=== PATIENT | male | born 1980 | race Caucasian/White ===

== ENCOUNTER 2024-09-17 16:57 | Inpatient (IN) | payer OTHER, SELFPAY ==
[2024-09-17] VITALS (24 sets, daily range): BP systolic 101–153; BP diastolic 60–100; BMI 33.7
[2024-09-17 14:37] LABS: % Basophils 0.3 % (0-2); % Eosinophils 0.1 % (0-6); % Immature Granulocytes 0.4 % (0-0.5); % Lymphocytes 6.7 % (20.5-51.1); % Neutrophils 87.5 % (42.2-75.2); Absolute Basophils 0.1 10^3/uL (0-0.2); Absolute Immature Granulocytes 0.1 10^3/uL (0-0.05); Absolute Lymphocytes 1.1 10^3/uL (1.2-3.4); Absolute Monocytes 0.8 10^3/uL (0.1-0.6); Absolute Neutrophils 14.1 10^3/uL (1.4-6.5); Hematocrit 46.7 % (39.0-52.0); Hemoglobin 16.5 g/dL (13.0-18.0); Mean Corp Hgb Conc. 35.3 g/dL (33.0-37.0); Mean Corpuscular Hgb 30.1 pg (27.0-31.0); Mean Corpuscular Volume 85.2 fL (80.0-94.0); Mean Platelet Volume 10.6 fL (7.4-10.4); Nucleated Red Blood Cells % 0 % (-); Platelet Count 297 10^3/uL (130-400); Red Blood Cell Count 5.48 10^6/uL (4.70-6.10); Red Cell Dist. Width 13.2 % (11.5-14.5); White Blood Cell Count 16.1 10^3/uL (4.8-10.8)
[2024-09-17 14:50] LABS: ALT (SGPT) 32 U/L (0-50); AST (SGOT) 97 U/L (17-59); Albumin 5.2 g/dl (3.5-5.0); Alkaline Phosphatase 66 U/L (38-126); Blood Urea Nitrogen 13 mg/dl (9-20); Carbon Dioxide 25 mmol/L (22-30); Chloride 108 mmol/L (98-107); Glucose 158 mg/dl (70-99); Lipase 96 U/L (23-300); Potassium 4.5 mmol/L (3.5-5.1); Sodium 145 mmol/L (135-145); Total Bilirubin 0.7 mg/dl (0.2-1.3); Total Protein 8.1 g/dl (6.3-8.2); eGFR > 60.00
--- NOTE | 2024-09-17 15:17 | ED.GENMED ---
History of Present Illness
General
Chief Complaint: Chest Pain
Source: patient
Exam Limitations: none
Time Seen by Provider: 09/17/24 15:08
History of Present Illness
History of Present Illness:
See MDM
Past History
Past History
ED Past Medical History: HTN and Hypercholesterolemia
ED Past Surgical History: None
Social History
Tobacco: Other (chewed tobacco)
Alcohol: None
Phy Exam
Physical Exam
Physical Exam:
See MDM
Scores
Heart Score for Chest Pain Patients
STEMI patient?: No
History: Highly Suspicious
ECG: Nonspecific Repolarization
Age: >45 - <65 years
Risk Factors: >/= 3 Risk Factors or History of CAD
Troponin: >/= 3 x Normal Limit
Heart Score for Chest Pain Patients: 8
Heart Score Risk: 72.7 % MACE over next 6 weeks
Course
Orders/Labs/Results
Orders:
Orders
09/17/24 14:09
Electrocardiogram (*1) Urgent
Reason for Study: Chest Pain
EKG- Treatment ONCE
09/17/24 14:27
Complete Blood Count/With Diff Urgent
Comprehensive Metabolic Panel Urgent
Lipase Urgent
Troponin I Urgent
09/17/24 15:16
Consult Cardiology [CARDIOLOGY CONSULT] Urgent
Consulting Provider: Erica Cote
Was physician already notified: Yes
Cardiac Monitoring- Treatment ONCE
0.9% Sodium Chloride 1000 ml [Nss] 1,000 ml IV BOLUS
Aspirin Chewable [Low Strength Aspirin] 324 mg PO NOW STA
Nitroglycerin Sublingual [Nitrostat (Sublingual)] 0.4 mg SL [id number] PRN
09/17/24 15:25
Nitroglycerin 100 mg/250 ml [Nitroglycerin Premix] 100 mg in 250 ml IV NOW
Initial dose in mcg/min, then titrate:: 5
Titrate to keep:: SBP < 160 mmHg
Titrate by mcg/min:: 5 mcg/min, may increase by 10 mcg/min if dose > 20 mcg/min
Frequency of titrations (minutes):: every 3-5 minutes
Maximum dose in mcg/min:: 200
Begin to taper infusion when:: Remained at goal for 2hrs
Taper by mcg/min:: 5 mcg/min
Frequency of taper (minutes) if patient maintains goal:: 30
Taper to off?: Yes
If infusion off & no longer maintaining goal:: Contact Provider
09/17/24 15:26
Electrocardiogram (*1) Urgent
Reason for Study: Chest Pain
EKG- Treatment ONCE
09/17/24 15:29
PTT Urgent
Prothrombin Time Urgent
09/17/24 15:31
CR Chest Portable - 1 View Urgent
Comment:
Reason For Exam: Chest pain
Reason Study Needs to be Portable: Unable to Transport
09/17/24 15:33
Add On- LAB Urgent
Tests Added?: hgb A1c, TSH reflex Free T4
Abnormal Lab Results
09/17/24
14:27
WBC 16.1 H 10^3/uL
(4.8-10.8)
MPV 10.6 H fL
(7.4-10.4)
Abs Immat Gran (auto) 0.1 H 10^3/uL
(0-0.05)
Absolute Neuts (auto) 14.1 H 10^3/uL
(1.4-6.5)
Absolute Lymphs (auto) 1.1 L 10^3/uL
(1.2-3.4)
Absolute Monos (auto) 0.8 H 10^3/uL
(0.1-0.6)
Neutrophils % 87.5 H %
(42.2-75.2)
Lymphocytes % 6.7 L %
(20.5-51.1)
Chloride 108 H mmol/L
(98-107)
Glucose 158 H mg/dl
(70-99)
Calcium 11.0 H mg/dl
(8.4-10.2)
AST 97 H U/L
(17-59)
Troponin I 5.800 H* ng/ml
Albumin 5.2 H g/dl
(3.5-5.0)
09/17/24 14:27
09/17/24 14:27
Vital Signs
Initial and Last Documented VS:
Initial Vital Signs
Pulse Resp BP Pulse Ox
69 18 153/86 99
09/17/24 14:16 09/17/24 14:16 09/17/24 14:16 09/17/24 14:16
Last Documented Vital Signs
Pulse Resp BP Pulse Ox
69 18 117/78 99
09/17/24 14:16 09/17/24 14:16 09/17/24 15:33 09/17/24 14:16
MDM/Problems Addressed
Differential Diagnosis Includes:
HPI and MDM Narrative:
44-year-old male presenting for evaluation of chest pain. Patient states the pain woke him up at 5:30 in the morning. Since then, patient has been noticing that symptoms are worse with exertion. Initially thought it could be GERD related so he
took Tums. Given the persistent nature he came to the emergency department. Screening EKG did not show any evidence of STEMI. Patient was brought back to the emergency department immediately when his troponin was elevated at 5.8
Patient immediately placed on the monitor. I discussed case with cardiology. Will start heparin drip and start sublingual nitroglycerin. Patient given aspirin
Patient placed on pads for when the monitor showed unsustained V. tach
Physical exam
General: Well appearing and non-toxic
HEENT: protecting airway
Neck: appears supple
CV: No evidence of cyanosis. Regular rate and rhythm
Resp: No accessory muscle use. Lungs clear
Abd: Non-distended
Extremities: No deformities
Neuro: alert
Psych: Normal affect
Skin: Intact
Problems Addressed including Acute and Chronic Conditions affecting care:
1. NSTEMI
Acuity: acute
Prognosis: unstable
Details: Patient started on heparin drip. Will give aspirin and give nitroglycerin tablets
Updates
After discussing case with cardiology, cardiology at bedside immediately
Repeat EKG shows no ischemic changes
Patient placed on IV heparin and IV nitro
Differential Diagnosis (but not limited to): NSTEMI, unstable angina
Testing considered: D-dimer
Drug therapy (if applicable): OTC meds, please see d/c instruction regarding Rx drugs
Amount and/or Complexity of Data Reviewed
Clinical info obtained from: Patient
External data reviewed: N/A
Labs I independently reviewed (but not limited to): Elevated troponin
Radiology: x-ray independently reviewed: Chest x-ray clear
Pulse Ox: not hypoxic
EKG independently reviewed: Sinus rhythm, normal axis, no STEMI, Q waves inferiorly
Bottom Steep Tender: Sinus rhythm
Critical Care: The high probability of a clinically significant, sudden or life threatening deterioration of the cardiovascular system(s) required my full and direct attention, intervention and personal management. The aggregate critical care time
was 35 minutes. This time is in addition to time spent performing reported procedures but includes the following:
[x] Data Review and interpretation
[x] Patient assessment and monitoring of vital signs
[x] Documentation
[x] Medication orders and management
Risk of Complication:
Social Determinants of health: Good social support
Discussed with other providers: Cardiology
Escalation of Care includes Admit/Obs: Given concern for NSTEMI, will admit to cardiac catheterization lab on heparin and nitroglycerin drip
Occasional wrong word or 'sound a like' substitutions may have occurred due to the inherent limitations of voice recognition software. Read the chart carefully and recognize, using context, where substitutions have occurred.
*Critical Care Note
Total Time (30-74mins, 75-104mins- exclusive of procedures): 35 min
ED Attending Note
-
Portions of this chart may have been created with voice recognition software.� Occasional wrong word or��sound alike� substitutions may have occurred due to the inherent limitations of voice recognition software.
Discharge Plan
Departure
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
Date of Disposition: 09/17/24
Time of Disposition: 15:35
Presentation/result/management discussed w/ accepting MD/DO: Foot Drill Operator
Discharge Problem:
Non-ST elevation [place] (NSTEMI)
Prescriptions:
No Action
sertraline 100 mg Tablet
100 mg PO BID
valsartan 80 mg Tablet
80 mg PO HS
bismuth subsalicylate [Pepto-Bismol] 262 mg/15 mL Suspension
262 mg PO DAILYPRN PRN (Reason: gerd)
calcium carbonate [Tums] 200 mg calcium (500 mg) Tablet,Chewable
200 mg PO BIDPRN PRN (Reason: gerd)
ezetimibe [Zetia] 10 mg Tablet
10 mg PO QPM
omeprazole 20 mg Tablet,Delayed Release (Dr/Ec)
20 mg PO DAILYPRN PRN (Reason: gerd)
Interventions
Interventions:
*Risk Screen - Suicide Last Done: 09/17/24 14:16
*General Assessment Last Done: 09/17/24 14:16
*Neglect/Abuse Screening Last Done: 09/17/24 14:16
*ED- Fall Risk Assessment Last Done: 09/17/24 15:26
*ED COVID-19 Vaccine History Last Done: 09/17/24 14:16
ED- Cardiac Assessment Last Done: 09/17/24 15:26
Discharge Date and Time
Print Language: PORTUGUESE
[2024-09-17] MEDS: NITROSTAT (SUBLINGUAL) 0.4 MG SL ×2 (15:22→15:33)
[2024-09-17] MEDS: NSS 1000 IV (15:23)
[2024-09-17] MEDS: LOW STRENGTH ASPIRIN 324 MG PO (15:25)
[2024-09-17] MEDS: NITROGLYCERIN PREMIX 250 IV (15:36)
--- NOTE | 2024-09-17 15:58 | CON.CAR ---
Addendum entered and electronically signed by Erica Cote DO 09/17/24 16:45:
I saw and examined the patient.
The Rock Wool Insulator's note was reviewed and I agree with the note.
Comment: Patient was urgently seen and examined in the ED bed 12 with cardiac PA. Patient came to ER today with chest pain that started around 0530 this morning and cardiology was consulted when his Troponin lab resulted at 5.8. Patient started with
chest pain at 0530 today and has been constant prompting him to come to the ED. For several days prior to this morning he had nonbloody diarrhea with poor appetite. No fevers or chills. He initially saw the chest pain was related to reflux as he
also started vomiting this morning and felt lightheaded, cool and clammy. Patient was in triage in the ER and had ECG on arrival to ER that was SR with IC RBBB. While in triage, labs were drawn; Troponin returned positive at 5.8. He was given 325
mg of aspirin as well as sublingual nitroglycerin x 2 without much chest pain relief. He rated chest pain initially a 10 out of 10 and it improved to a 7-8 out of 10 after second nitroglycerin. Chest x-ray obtained during consultation was reviewed
on machine with no acute abnormalities or widened mediastinum. Heparin drip was ordered however patient transported to [facility] prior to order completion. Ramiro has a history of polysubstance abuse including cocaine and heroin but has been in
remission since 2006. He formally smokes now only chews tobacco. He denies any recent drug or alcohol use. He has a history of hypothyroidism and hyperlipidemia with statin intolerance on ezetimibe. He has no history of hypertension, diabetes,
or known coronary artery disease. He is currently unemployed. Family history with multiple family members including 2 brothers with coronary artery disease and his 1 brother requiring bypass surgery within the last 6 months.
General: Currently in distress complaining of chest pain. Awake alert and oriented x 3
Neck: Negative JVD
Heart: Regular, positive S1/S2, No murmur
Lungs: CTA b/l, negative wheezes/rales/rhonchi
Abd: Obese, nontender. Positive bowel
Ext: No edema. Victor Hugo's test right wrist normal
Neuro: nonfocal
Plan:
ACS/non-STEMI with ongoing chest pain
-Contacted interventional cardiology with plan for urgent coronary angiography
-Eventual check 2D echocardiogram
-Serial EKGs
-Trend troponin
-Further recommendations pending cath findings
History of hyperlipidemia and statin intolerance/myalgias on Crestor
-Check lipid profile
-Pending findings will likely need moderate intense statin until can be seen in the outpatient and can evaluate cost of PCSK9 inhibitors
Hypothyroidism- check TSH
Original Note:
Consultation
Consultation Request
Date/Time Consultation Requested: 09/17/24
Performing Provider: Dr. Cote
Reason for Consultation: H&P for admission for NSTEMI, chest pain
Medical History
-
History of Present Illness:
Patient came to ER today with chest pain that started around 0530 this morning and cardiology was consulted when his Troponin lab resulted at 5.8. Patient started with chest pain at 0530 today. Prior to today patient was experiencing diarrhea and
thought he had a viral illness. Today he started with vomiting and had some chest pain with that, but chest pain did not resolve after vomiting improved so he finally came to the ER. Patient was in triage in the ER and had ECG on arrival to ER that
was SR with IC RBBB, labs were drawn and sent as well. Patient's labs returned Troponin was positive at 5.8 so patient was brought back to room 12. Patient was given NTG SL x1 without relief. Cardiology called to see patient and upon entering room
the patient had ongoing pain. Second ECG requested. Second NTG SL requested. Also requested Heparin gtt and case reviewed with interventional cardiology. CXR performed after cardiology arrival. Patient taken to labour market economist.
PMH:
FH CAD
Former smoker
Chews tobacco
h/o polysubstance use, previous cocaine and heroin, but sober since 2006
Hyperlipidemia with statin intolerance
Hypothyroidism
Past Medical History
Past Medical History: Other (in HPI)
Past Surgical History: Other (hernia repair)
Social History
Tobacco: Former Smoker (no longer smoking, but does chew tobacco)
Alcohol: None
Drug: Former User (sober for 18 years, but previous heroin and cocaine use)
Personal: Single
Living: With Family
Family History
Family History: CAD (one brother had PCI last month and other brother has a h/o CABG)
Allergies / Home Medications
Allergy/AdvReac Type Severity Reaction Status Date / Time
rosuvastatin Allergy Unknown Verified 09/17/24 14:19
�Medication �Instructions �Recorded �Confirmed �Type
bismuth subsalicylate 262 mg/15 mL 262 mg PO DAILYPRN PRN gerd 09/17/24 09/17/24 History
oral suspension (Pepto-Bismol)
calcium carbonate (Tums) 200 mg PO BIDPRN PRN gerd 09/17/24 09/17/24 History
ezetimibe 10 mg tablet (Zetia) 10 mg PO QPM 09/17/24 09/17/24 History
levothyroxine 100 mcg tablet 100 mcg PO DAILY 09/17/24 09/17/24 History
(Synthroid)
omeprazole 20 mg tablet,delayed 20 mg PO DAILYPRN PRN gerd 09/17/24 09/17/24 History
release
sertraline 100 mg tablet 100 mg PO BID 09/17/24 09/17/24 History
valsartan 80 mg tablet 80 mg PO HS 09/17/24 09/17/24 History
Review of Systems
-
History Source: Patient and Family (mother bedside)
All other systems: Negative unless noted
Physical Exam
Vital Signs
Pulse Resp BP Pulse Ox
69 18 117/78 99
09/17/24 14:16 09/17/24 14:16 09/17/24 15:33 09/17/24 14:16
GEN: NAD, AAOx3
HEENT: EOMI, MMM
LUNGS: RA. CTA B/L, no wheeze
CV: SR on tele. Reg, S1/S2, no murmur
ABD: soft, BS+, NT, ND
EXT: No clubbing, cyanosis, lesions or edema B/L
NEURO: Gross non-focal
SKIN: Warm, dry and pink. No rash
Lab Results
09/17/24 14:27
09/17/24 14:27
Troponin I 5.800 ng/ml H* 09/17/24 14:27
Impression / Plan
-
PCP: Unknown
Card: None
Impression:
Admitted with ACS, elevated Troponin 09/17/24
Chest pain starting 09/17/24 AM
Elevated Troponin, initial Troponin 5.8
NSVT, 13 beat run 09/17/24
FH CAD
Former smoker
Chews tobacco
h/o polysubstance use, previous cocaine and heroin, but sober since 2006
Hyperlipidemia with statin intolerance
Hypothyroidism
Hyperglycemia
Plan:
-Patient came to ER today with chest pain that started around 0530 this morning and cardiology was consulted when his Troponin lab resulted at 5.8. Patient started with chest pain at 0530 today. Prior to today patient was experiencing diarrhea and
thought he had a viral illness. Today he started with vomiting and had some chest pain with that, but chest pain did not resolve after vomiting improved so he finally came to the ER. Patient was in triage in the ER and had ECG on arrival to ER that
was SR with IC RBBB, labs were drawn and sent as well. Patient's labs returned Troponin was positive at 5.8 so patient was brought back to room 12. Patient was given NTG SL x1 without relief. Cardiology called to see patient and upon entering room
the patient had ongoing pain. Second ECG requested. Second NTG SL requested. Also requested Heparin gtt and case reviewed with interventional cardiology. CXR performed after cardiology arrival. Patient taken to labour market economist.
-ECG reviewed by me without ST elevation
-Initial Troponin 5.8 and story concerning for ACS. Patient and mother agreeable to cardiac cath.
-Aspirin 324 mg chewable x1 given in the ER
-13 beat run of NSVT, asymptomatic in the ER. Potassium 4.5. Will add on magnesium level, ordered by me
-Check echo
-Check CVE. Patient takes Zetia 10 mg daily and reports myalgias with Crestor in the past.
-Hyperglycemia, HgbA1c pending
[2024-09-17 16:02] LABS: INR 1.09; PT 14.5 Sec (11.4-14.6)
[2024-09-17 16:03] LABS: APTT 24.3 Sec (23.4-35.0)
[2024-09-17 16:36] LABS: ACT-LR - POC 282 Seconds (116-155)
[2024-09-17 16:48] LABS: ACT-LR - POC 300 Seconds (116-155)
[2024-09-17 16:48] LABS: Magnesium 1.9 mg/dl (1.6-2.3)
--- NOTE | 2024-09-17 17:58 | PTCARENOTE ---
4/7 Pt admitted from [facility], right radial CDI, 97% RA , SR on the monitor. Pt c/o chest pressure, nitro gtt infusing, VSS. Pt educated on POC, oriented to room and surroundings.
[2024-09-17] MEDS: ZETIA 10 MG PO (18:08)
[2024-09-17] MEDS: NICODERM TRANSDERMAL 21 MG TRANSDERM (18:09)
[2024-09-17] MEDS: LIPITOR 40 MG PO (18:09)
--- NOTE | 2024-09-17 19:40 | ITS.CL.CATH ---
Clinical Dietetic Technician - Catheterization
Cardiac Catheterization
Procedure Report:
LEFT HEART CATH AND CORONARY INTERVENTION
Date of Procedure: September 17, 2024
Referring: Dr. Erica Cote
PROCEDURES:
1. Left heart catheterization with coronary and single-plane left ventriculography
2. Successful stenting of the distal right coronary artery with a 2.75 x 18 mm Daniel stent that was implanted at nominal pressures and postdilated to high pressures with a 3.0 mm noncompliant balloon to 25 florentin proximally and 14 florentin distally
INDICATION: This is a 44-year-old gentleman who presented to [facility] with complaints of substernal chest pain beginning approximately 10 hours prior to presentation. His troponin resulted at 5.8 ng/mL and he continues to experience 8/10
substernal chest pressure. He was referred for emergent coronary angiography. He does have a past medical history notable for polysubstance abuse including cocaine and heroin but has been abstinent of drugs since 2006. He is a former smoker but
now chews tobacco. No significant alcohol abuse.
ACCESS: Right radial artery, 6 Tongan sheath
HEMODYNAMICS (mmHg):
AO (s/d, m) : 108/79, 92
LV (s/d) : 112/7
LVEDP : 18
CORONARY FINDINGS
Dominance: Right
LEFT MAIN: Normal
LEFT ANTERIOR DESCENDING: The LAD arises normally from the left main and runs in the anterior interventricular groove supplying a moderate-sized first diagonal branch and small 2nd and 3rd diagonal branches. Only minor irregularities are noted.
CIRCUMFLEX: The circumflex is a large-caliber nondominant vessel that supplies a single sizable obtuse marginal branch that has a hazy 70% proximal stenosis. The distal obtuse marginal branch trifurcates into 3 smaller daughter branches
RIGHT CORONARY: The right coronary artery is a dominant vessel with a 30% proximal narrowing. The distal right coronary artery is found to be 100% occluded proximal to the crux of the vessel.
VENTRICULOGRAPHY: Left ventriculography was performed in [place] projection. The digital single-plane left ventricular ejection fraction is estimated at 50% with posterolateral and diaphragmatic inferior hypokinesis
ANGIOPLASTY PROCEDURE DETAIL: Upon review of the diagnostic catheterization from the decision was made to proceed with percutaneous revascularization of the 100% occluded distal right coronary artery. A 180 mg loading dose of ticagrelor was
administered prior to the interventional procedure. Intravenous heparin was given and the ACT was monitored throughout the procedure and maintained within therapeutic limits.
The origin of the right coronary artery was cannulated with a 6 Tongan AR-1 catheter which seated deeply into the RCA and provided adequate support, however, there was significant motion of the guide catheter in the proximal RCA making stent
placement difficult. A BMW guidewire crossed the occluded segment and was advanced into the PDA. Balloon predilation was performed using a 2.25 mm trek balloon and was followed by placement of a 2.75 x 18 mm Daniel stent. Positioning the stent at
the crux of the RCA was difficult due to guide catheter movement. The stent was implanted at nominal pressures and the distal edge of the stent was just at the crux of the distal RCA. The entire stented segment was postdilated to high pressures
with a 3.0 mm noncompliant balloon to 14 florentin distally and 25 florentin in the proximal and midportion of the stent.
SEDATION: 54 minutes of procedural sedation was utilized. An independent medical technologist microbiology was present to assist with and help manage the patient's level of consciousness and physiologic status
RADIATION SUMMARY: Fluoro Time (min): 11.8, Dose (mGy): 1495, DAP (Gy.cm2) : 104
CONCLUSIONS
1. Acute coronary syndrome with 100% occlusion of the distal RCA. Ongoing chest pain leading to emergent coronary angiography. Successful stenting of occluded distal right coronary artery with placement of a 2.75 x 18 mm Daniel stent that was
postdilated to high pressures with a 3.0 mm noncompliant balloon to 25 florentin in the proximal and midportion of the stent at 14 florentin distally
2. The mid circumflex/OM1 has a hazy 70% stenosis
3. Preserved LV systolic function with regional wall motion abnormality as described above
RECOMMENDATIONS
1. Uninterrupted dual antiplatelet therapy for 1 year
2. Staged coronary intervention of the mid circumflex before discharge
3. High intensity statin and guideline directed medical therapy for blood pressure control
Copy to: Dr. Erica Cote
[2024-09-17] MEDS: TYLENOL PO (20:44)
[2024-09-17] MEDS: MYLICON 80 MG PO (20:44)
[2024-09-17] MEDS: ZOLOFT PO (20:45)
[2024-09-17] MEDS: LOPRESSOR PO ×2 (20:45→23:00)
--- NOTE | 2024-09-17 20:45 | PTCARENOTE ---
Assumed care of pt from prev nsg shift; Pt c/o 4-5/10 'sharp, intermittent CP'; Pt is on a Nitro drip as ordered. Pt also c/o 'some indigestion' & is belching freq after dinner. Pt's VSS w/HR 70's & BP 120/77. Pt w/ R radial band in place, 1st 3cc
of air removed at 1930 as ordered. No signs or symptoms of bleeding or hematoma. This RN spoke w/CT surgery PA for an order for something for the indigestion/gas pains; Ordered for simethicone rec'd & given. Pt w/call loving within reach. Plan of care
ongoing.
[2024-09-17] MEDS: ZOFRAN 4 MG IV (21:55)
[2024-09-17] MEDS: MORPHINE SULFATE 2 MG IV (21:55)
--- NOTE | 2024-09-17 22:19 | W.PN.CARDCBS ---
Today's Communication / Plan
-
Urgent cath for possible PCI
Cont IV Nitro
Cont DAPT
Impression / Plan
-
.
PCP: Unknown
Card: None
Impression:
Recurrent cp s/p PCI September 17
Admitted with ACS, elevated Troponin 09/17/24
Chest pain starting 09/17/24 AM
Elevated Troponin, initial Troponin 5.8 and trending up
s/p PCI occluded RCA
Residual LCX disease
NSVT, 13 beat run 09/17/24
FH CAD
Former smoker
Chews tobacco
h/o polysubstance use, previous cocaine and heroin, but sober since 2006
Hyperlipidemia with statin intolerance
Hypothyroidism
Hyperglycemia
LEFT HEART CATH AND CORONARY INTERVENTION
Date of Procedure: September 17, 2024
PROCEDURES:
1. Left heart catheterization with coronary and single-plane left ventriculography
2. Successful stenting of the distal right coronary artery with a 2.75 x 18 mm Daniel stent that was implanted at nominal pressures and postdilated to high pressures with a 3.0 mm noncompliant balloon to 25 florentin proximally and 14 florentin distally
INDICATION: This is a 44-year-old gentleman who presented to [facility] with complaints of substernal chest pain beginning approximately 10 hours prior to presentation. His troponin resulted at 5.8 ng/mL and he continues to experience 8/10
substernal chest pressure. He was referred for emergent coronary angiography. He does have a past medical history notable for polysubstance abuse including cocaine and heroin but has been abstinent of drugs since 2006. He is a former smoker but
now chews tobacco. No significant alcohol abuse.
ACCESS: Right radial artery, 6 Sami sheath
HEMODYNAMICS (mmHg):
AO (s/d, m) : 108/79, 92
LV (s/d) : 112/7
LVEDP : 18
CORONARY FINDINGS
Dominance: Right
LEFT MAIN: Normal
LEFT ANTERIOR DESCENDING: The LAD arises normally from the left main and runs in the anterior interventricular groove supplying a moderate-sized first diagonal branch and small 2nd and 3rd diagonal branches. Only minor irregularities are noted.
CIRCUMFLEX: The circumflex is a large-caliber nondominant vessel that supplies a single sizable obtuse marginal branch that has a hazy 70% proximal stenosis. The distal obtuse marginal branch trifurcates into 3 smaller daughter branches
RIGHT CORONARY: The right coronary artery is a dominant vessel with a 30% proximal narrowing. The distal right coronary artery is found to be 100% occluded proximal to the crux of the vessel.
VENTRICULOGRAPHY: Left ventriculography was performed in [place] projection. The digital single-plane left ventricular ejection fraction is estimated at 50% with posterolateral and diaphragmatic inferior hypokinesis
ANGIOPLASTY PROCEDURE DETAIL: Upon review of the diagnostic catheterization from the decision was made to proceed with percutaneous revascularization of the 100% occluded distal right coronary artery. A 180 mg loading dose of ticagrelor was
administered prior to the interventional procedure. Intravenous heparin was given and the ACT was monitored throughout the procedure and maintained within therapeutic limits.
The origin of the right coronary artery was cannulated with a 6 Sami AR-1 catheter which seated deeply into the RCA and provided adequate support, however, there was significant motion of the guide catheter in the proximal RCA making stent
placement difficult. A BMW guidewire crossed the occluded segment and was advanced into the PDA. Balloon predilation was performed using a 2.25 mm trek balloon and was followed by placement of a 2.75 x 18 mm Daniel stent. Positioning the stent at
the crux of the RCA was difficult due to guide catheter movement. The stent was implanted at nominal pressures and the distal edge of the stent was just at the crux of the distal RCA. The entire stented segment was postdilated to high pressures
with a 3.0 mm noncompliant balloon to 14 florentin distally and 25 florentin in the proximal and midportion of the stent.
SEDATION: 54 minutes of procedural sedation was utilized. An independent regional medical director was present to assist with and help manage the patient's level of consciousness and physiologic status
RADIATION SUMMARY: Fluoro Time (min): 11.8, Dose (mGy): 1495, DAP (Gy.cm2) : 104
CONCLUSIONS
1. Acute coronary syndrome with 100% occlusion of the distal RCA. Ongoing chest pain leading to emergent coronary angiography. Successful stenting of occluded distal right coronary artery with placement of a 2.75 x 18 mm Daniel stent that was
postdilated to high pressures with a 3.0 mm noncompliant balloon to 25 florentin in the proximal and midportion of the stent at 14 florentin distally
2. The mid circumflex/OM1 has a hazy 70% stenosis
3. Preserved LV systolic function with regional wall motion abnormality as described above
RECOMMENDATIONS
1. Uninterrupted dual antiplatelet therapy for 1 year
2. Staged coronary intervention of the mid circumflex before discharge
3. High intensity statin and guideline directed medical therapy for blood pressure control
Plan:
Worsening chest pain tonight despite increased IV nitro and IV morphine. Treated nausea and vomiting with Zofran.
Pt also given SL nitro.
Reviewed cath films with interventional cardiology. With his continued progressive chest pain and angina similar to prior angina before PCI, discussed urgent cath for potential LCX PCI.
Cath teamed has been called and is coming in.
EKG remains stable compared to previous EKG
Trop up to 60. Cont to trend troponin until it peaks.
Cont DAPT with ASA/Brilinta, beta igor, atorvastatin and Zetia.
Echo pending.
Lipids AM pending
HbA1c pending.
Discussed with nursing, CT PA, interventional cardiology.
CCT: 45 min
HPI:Patient came to ER today with chest pain that started around 0530 this morning and cardiology was consulted when his Troponin lab resulted at 5.8. Patient started with chest pain at 0530 today. Prior to today patient was experiencing diarrhea
and thought he had a viral illness. Today he started with vomiting and had some chest pain with that, but chest pain did not resolve after vomiting improved so he finally came to the ER. Patient was in triage in the ER and had ECG on arrival to ER
that was SR with IC RBBB, labs were drawn and sent as well. Patient's labs returned Troponin was positive at 5.8 so patient was brought back to room 12. Patient was given NTG SL x1 without relief. Cardiology called to see patient and upon entering
room the patient had ongoing pain. Second ECG requested. Second NTG SL requested. Also requested Heparin gtt and case reviewed with interventional cardiology. CXR performed after cardiology arrival. Patient taken to mobile home laborer.
Progress Note - Institutional Custodian
Subjective
Date of Service: September 17, 2024
Pt seen and examined. Complaints of significant chest pain 8-02/20, diaphoresis, nausea and vomiting.
Objective
Labs:
09/17/24 14:27
09/17/24 14:
Labs
Hgb 16.5 g/dL (13.0-18.0) 09/17/24 14:27
Hct 46.7 % (39.0-52.0) 09/17/24 14:27
Plt Count 297 10^3/uL (130-400) 09/17/24 14:27
PT 14.5 Sec (11.4-14.6) 09/17/24 15:29
INR 1.09 09/17/24 15:29
APTT 24.3 Sec (23.4-35.0) 09/17/24 15:29
Sodium 145 mmol/L (135-145) 09/17/24 14:27
Potassium 4.5 mmol/L (3.5-5.1) 09/17/24 14:27
BUN 13 mg/dl (9-20) 09/17/24 14:27
Creatinine 0.9 mg/dL (0.7-1.3) 09/17/24 14:27
Glucose 158 mg/dl (70-99) H 09/17/24 14:27
Troponins
09/17/24 09/17/24
14:27 21:00
Troponin I 5.800 H* 60.200 H* D
Vital Signs and I&O:
Vital Signs
Temp Pulse Resp BP Pulse Ox
98.6 F 72 20 110/70 98
04/07/25 19:19 09/17/24 22:00 09/17/24 19:19 09/17/24 22:00 09/17/24 22:00
Vital Signs
Temp Pulse Resp BP Pulse Ox
98.6 F 72 20 110/70 98
09/17/24 19:19 09/17/24 22:00 09/17/24 19:19 09/17/24 22:00 09/17/24 22:00
Intake & Output
09/15/24 09/16/24 09/17/24 09/18/24
06:59 06:59 06:59 06:59
Output Total 200 / 200
Balance -200 / -200
Physical Exam
Physical Exam
General: No acute distress, AAOX3
Neck: Negative JVD
Heart: Regular, Negative S3 positive S1/S2, Negative S4, No murmur
Lungs: CTA b/l, negative wheezes/rales/rhonchi
Abd: Positive BS, NT/ND, neg rebound/rigidity/guarding
Ext: Negative cyanosis/clubbing/edema
Neuro: nonfocal
--- NOTE | 2024-09-17 22:33 | PTCARENOTE ---
Pt w/increasing CP & upper abd pain since change of shift; Pt's IV Nitro titrated up for pain 4-5/10 at change of shift to as high as 8/10 by 2100. Pt diaphoretic, nauseous & vomited x2. CT Surgery NURIA, Everette Nash aware & in to see pt. Cardiology
notified. Rec'd telephone order for STAT IV Morphine & IV Zofran; Increased to Nitro drip to 50mcg & 1 SL Nitro administered to pt. Pt reporting 'some relief' but continues to rate pain at a 5-6/10 & that the nausea & pain are 'coming in waves'. Dr
Gejer in to see pt & IV Nitro increased to 70mcg. Cardiac cath called in for repeat cath tonight. Pt aware of plan of care.
--- NOTE | 2024-09-17 22:43 | PTCARENOTE ---
Pt continues w//;10 mid/upper chest pain & nausea. IV Nitro increased to 80mcg.
--- NOTE | 2024-09-17 22:45 | PTCARENOTE ---
Report to Krista in process laboratory specialist; pt taken to wheelabrator operator in his bed.
[2024-09-17] MEDS: DIOVAN PO (23:00)
[2024-09-17 23:20] LABS: ACT-LR - POC 277 Seconds (116-155)
--- NOTE | 2024-09-17 23:48 | ITS.CL.PN ---
Coding And Reimbursement Specialist - Procedure Note
Procedure
Procedure Note:
CARDIAC CATHETERIZATION REPORT
Date of Procedure: 09/17/2024
Referring: Vipul Ruiz DO
Indication: high risk NSTEMI - patient was status post PCI to RCA for inferior STEMI earlier in the day and had acutely worsening chest pain several hours post-op with significant rise in troponin concerning for stent failure versus ischemia related
to the unrevascularized non-culprit LCx OM stenosis
PROCEDURE(S)
1. left heart catheterization
2. coronary angiography
3. PCI with ALEK for acute TX to LCx
4. IVUS LCx
ACCESS: 6F right radial artery (closure: radial band)
CATHETERS
1. 6F AR1
2. 6F EBU4 guide
MODERATE SEDATION: 60 minutes of moderate sedation was utilized. An independent medical office administrator was present to assist with and help manage the patient's level of consciousness and physiologic status.
HEMODYNAMIC DATA
LV 104/8 (EDP 14) mmHg
AO 99/76 (mean 86) mmHg
CORONARY ANGIOGRAPHY
Dominance: right
LM: normal
LAD: Large vessel giving rise to a large D1, small D2, and small D3. There is mild diffuse disease.
LCx: Large vessel giving rise to a small OM1/ramus, very large OM2, and small OM3. There is a hazy, thrombotic appearing, 80% stenosis in proximal aspect of the OM2.
RCA: Large vessel giving rise to a medium caliber RPDA and small RPL branch. There is a widely patent stent in the distal RCA and the branch vessels have improved caliber and flow compared to prior angiography.
IVUS-guided PCI with ALEK to OM2
Heparin was administered to achieve ACT greater than 300. A Runthrough wire was placed in the distal OM2. Initial lesion preparation was performed with a 2.5 semicompliant balloon with full expansion. IVUS was performed demonstrating noncalcified
plaque and a proximal and distal reference vessel diameter of 4 mm. A 4.0 x 22 mm [place] frontier drug-eluting stent was delivered at nominal pressure followed by post dilation with a 4.0 NC balloon to 16 florentin at the edges and 18 florentin in the midportion.
Final IVUS demonstrated full stent expansion and apposition without edge dissection and appropriate sizing. Final angiography demonstrated an outstanding result. The wire and guide were removed and a TR band placed.
RADIATION: dose 725.61 mGy; DAP 37.3688 Gy*cm2; fluoroscopy time 10.7 min
CONCLUSIONS
1. Coronary angiography demonstrates widely patent stent in the distal RCA with improved distal RCA runoff. There is a hazy thrombotic stenosis in the very large OM2 branch that is the potential culprit for the patient's worsening chest pain.
Ongoing chest pain may also be driven by microvascular disease post-STEMI.
2. Mildly elevated LVEDP and no aortic stenosis on hemodynamic pullback
3. Successful IVUS guided PCI with ALEK to the OM2 (4.0 x 22 [place] ALEK postdilated to high-pressure with a 4.0 NC balloon)
RECOMMENDATIONS
1. Continue DAPT with aspirin and ticagrelor for at least 1 year
2. Nitroglycerin to control chest pain
3. High intensity statin with LDL goal <55 and guideline directed medical therapy for blood pressure control
4. Check Lp(a) in AM
5. TTE in AM
6. Cardiac rehab
Copy to: Dr. Erica Cote
Signed: Mio Kwok MD, PhD
[2024-09-18] VITALS (20 sets, daily range): BP systolic 90–127; BP diastolic 50–83
[2024-09-18] MEDS: ZOLOFT 100 MG PO ×3 (01:48→21:14)
[2024-09-18] MEDS: TYLENOL 650 MG PO ×4 (01:49→21:16)
[2024-09-18 05:16] LABS: % Basophils 0.2 % (0-2); % Eosinophils 0.1 % (0-6); % Immature Granulocytes 0.5 % (0-0.5); % Monocytes 11.1 % (1.7-9.3); % Neutrophils 77.1 % (42.2-75.2); Absolute Basophils 0.1 10^3/uL (0-0.2); Absolute Immature Granulocytes 0.1 10^3/uL (0-0.05); Absolute Lymphocytes 2.2 10^3/uL (1.2-3.4); Absolute Monocytes 2.3 10^3/uL (0.1-0.6); Absolute Neutrophils 15.7 10^3/uL (1.4-6.5); Hematocrit 39.8 % (39.0-52.0); Hemoglobin 14.3 g/dL (13.0-18.0); Mean Corp Hgb Conc. 35.9 g/dL (33.0-37.0); Mean Corpuscular Hgb 30.5 pg (27.0-31.0); Mean Corpuscular Volume 84.9 fL (80.0-94.0); Mean Platelet Volume 10.7 fL (7.4-10.4); Nucleated Red Blood Cells % 0 % (-); Platelet Count 245 10^3/uL (130-400); Red Blood Cell Count 4.69 10^6/uL (4.70-6.10); Red Cell Dist. Width 13.2 % (11.5-14.5); White Blood Cell Count 20.4 10^3/uL (4.8-10.8)
[2024-09-18 05:29] LABS: ALT (SGPT) 52 U/L (0-50); AST (SGOT) 347 U/L (17-59); Albumin 4.2 g/dl (3.5-5.0); Alkaline Phosphatase 53 U/L (38-126); Blood Urea Nitrogen 14 mg/dl (9-20); Calcium 9.8 mg/dl (8.4-10.2); Carbon Dioxide 24 mmol/L (22-30); Chloride 112 mmol/L (98-107); Estimated Creatinine Clearance > 125 ml/min; Glucose 108 mg/dl (70-99); HDL Cholesterol 28 mg/dl; LDL Cholesterol, Calculated 99 mg/dl; Potassium 3.8 mmol/L (3.5-5.1); Sodium 145 mmol/L (135-145); Total Bilirubin 0.7 mg/dl (0.2-1.3); Total Cholesterol 156 mg/dl (50-199); Total Protein 6.5 g/dl (6.3-8.2); Triglyceride 146 mg/dl (10-149); Very Low Density Lipoprotein 29 mg/dl (0-30); eGFR > 60.00
[2024-09-18] MEDS: SYNTHROID 100 MCG PO (07:15)
[2024-09-18] MEDS: PROTONIX 40 MG PO (07:43)
[2024-09-18] MEDS: NICODERM TRANSDERMAL 21 MG TRANSDERM (07:43)
[2024-09-18] MEDS: BRILINTA 90 MG PO ×2 (07:43→21:14)
[2024-09-18] MEDS: KCL 20 MEQ PO (07:44)
[2024-09-18] MEDS: LOW STRENGTH ASPIRIN 81 MG PO (07:44)
[2024-09-18] MEDS: LOPRESSOR 25 MG PO (07:46)
--- NOTE | 2024-09-18 09:18 | W.PN.CARDCBS ---
Today's Communication / Plan
-
echo
trend troponin to peak
wean nitro off
monitor tele another 24-48h
Impression / Plan
-
.
PCP: Domingo Flores [facility], [place], [phone]
CDY: none prior to admission, new to Erica Cote MD
44 y/o, PMH HTN, statin intolerant HLD, polysubstance abuse including cocaine, heroin but drug free since 2006, sig FH CAD.
Woke with SSCP with associated nausea/vomiting about 10 hours prior to arriving in ER. Initial EKG NSR w/inc RBBB, no acute changes. First troponin 5.8. Continued to have 8/10 SSCP despite nitro, heparin. Brought urgently to quality lab technician, s/p distal
RCA PCI for occluded vessel. Residual hazy 70% prox OM2 disease was planned for staged intervention this week, however, last evening developed 10/10 chest pain 'like an axe in my chest' along with significant rise of troponin to 60.2, and was
brought back to the lab, underwent OM2 PCI w/ALEK.
Currently with 1-2/10 residual chest pain that has been improving overnight, still on nitro gtt.
C- 100% occlusion of distal RCA, s/p angioplasty/ALEK
hazy 70% prox OM2 stenosis
LVG- EF 50% with posterolateral and diaphragmatic inferior hypokinesis
C garo- s/p IVUS guided angioplasty/ALEK of OM1
IMPRESSION:
Acute NSTEMI
s/p distal RCA PCI, 09/17/24
Residual 70% prox OM2 CAD with recurrent chest pain post RCA stenting
s/p prox OM2 PCI, 09/17/24
NSVT
inc RBBB
elevated liver enzymes
leukocytosis
HLD, statin intolerant
HTN
Elevated glucose levels
Elevated liver enzymes
FH CAD
Former smoker
Chews tobacco
h/o polysubstance use, previous cocaine and heroin, but sober since 2006
PLAN:
Chest pain much improved after OM2 intervention last evening
IV nitro at 10mcg- will wean off today- he has a headache
Tele- NSR 70-80s w/2-7bt NSVT/PVCs
Troponin up to 60.2- likely peak but will repeat one more this morning
DAPT w/asa, brilinta- CM to check cost
radial cath site stable
tolerating new start metoprolol tartrate 25 BID, continue valsartan
myalgias with rosuvastatin- willing to try atorvastatin, 40mg started last evening, continue zetia
Echo today
cardiac rehab
elevated glucose- HgbA1C pending- states he takes zepbound for weight loss
elevated liver enzymes- likely r/t GA, will repeat in AM
hypokalemia this AM- replaced
leukocytosis- afebrile, likely r/t GA, repeat in AM
Followup at [facility]
will monitor on tele for another 24-48h
Progress Note - Telecasting Engineer
Subjective
Date of Service: September 18, 2024
1-2/10 chest pain, much improved overnight after 2nd intervention
radial cath site tender
denies palps/dyspnea
oob to bathroom
Objective
Labs:
09/18/24 04:48
09/18/24 04:48
Labs
Hgb 14.3 g/dL (13.0-18.0) 09/18/24 04:48
Hct 39.8 % (39.0-52.0) 09/18/24 04:48
Plt Count 245 10^3/uL (130-400) 09/18/24 04:48
PT 14.5 Sec (11.4-14.6) 09/17/24 15:29
INR 1.09 09/17/24 15:29
APTT 24.3 Sec (23.4-35.0) 09/17/24 15:29
Sodium 145 mmol/L (135-145) 09/18/24 04:48
Potassium 3.8 mmol/L (3.5-5.1) 09/18/24 04:48
BUN 14 mg/dl (9-20) 09/18/24 04:48
Creatinine 0.8 mg/dL (0.7-1.3) 09/18/24 04:48
Glucose 108 mg/dl (70-99) H 09/18/24 04:48
Troponins
09/17/24 09/17/24 09/18/24
14:27 21:00 04:48
Troponin I 5.800 H* 60.200 H* D 60.000 H*
Vital Signs and I&O:
Vital Signs
Temp Pulse Resp BP Pulse Ox
98 F 83 20 105/73 96
09/18/24 07:18 09/18/24 08:15 09/18/24 07:18 09/18/24 07:46 09/18/24 07:18
Vital Signs
Temp Pulse Resp BP Pulse Ox
98 F 83 20 105/73 96
09/18/24 07:18 09/18/24 08:15 09/18/24 07:18 09/18/24 07:46 09/18/24 07:18
Intake & Output
09/16/24 09/17/24 09/18/24 09/19/24
06:59 06:59 06:59 06:59
Intake Total 1220 / 1220
Output Total 750 / 750
Balance 470 / 470
Physical Exam
Physical Exam
AAOx3, MAEE 5/5
RRR S1 S2 distant HS, no murmurs
CTA bilat, non labored
soft abd, + bs
right radial cath site without ht/bleeding, mildly tender to palpation
bilat extremities w/palpable distal pulses, no edema
[2024-09-18 10:32] LABS: Glycohemoglobin (HgbA1c) 5.4 % (4.0-5.6)
--- NOTE | 2024-09-18 10:35 | CM ---
priced brittany with pts [facility]- his copay is ZERO dollars and it is in stock
[2024-09-18] MEDS: TOPROL XL 25 MG PO (17:53)
[2024-09-18] MEDS: ZETIA 10 MG PO (17:53)
[2024-09-18] MEDS: LIPITOR 40 MG PO (17:53)
--- NOTE | 2024-09-18 18:59 | W.PN.CARDCBS ---
Today's Communication / Plan
-
PLAN:
1. Patient is doing well this morning with no acute events overnight. He tells me that his chest discomfort has significantly improved after OM2 intervention that he was taken for urgently last evening in the setting of ongoing chest discomfort.
2. He is currently off nitroglycerin drip and his headache has improved from before.
3. Telemetry with normal sinus rhythm with frequent ventricular ectopy and short runs of nonsustained VT versus AIVR.
4. Peak troponin of 60.2 so far. Plan to continue dual antiplatelet therapy with daily baby aspirin and Brilinta 90 mg twice daily. Co-pay for Brilinta is $0.
5. Echocardiogram was reviewed by myself with mild ischemic cardiomyopathy noted. We will optimize goal-directed medical therapy by switching his Lopressor to Toprol-XL and continuing valsartan for now. Given his blood pressure we will hold off
on adding Aldactone which will be considered tomorrow and we will also look into cost for SGLT2 inhibitor.
6. No issues at the radial access site with dressing in place which is clean, dry and intact without evidence of hematoma or bruit.
7. History of myalgias with rosuvastatin so we will try atorvastatin 40 mg along with Zetia with close monitoring of lipids as an outpatient with LDL less than 55. Strongly encouraged and educated about high-fiber Mediterranean type diet and
importance of following up for cardiac rehab as an outpatient and staying physically active to optimize his cardiovascular risk.
8. Follow-up on hemoglobin A1c given elevated abnormal glucose to rule out concerns for prediabetes/diabetes.
9. Out of bed to chair and ambulation. Will continue to monitor for another 24 to 48 hours with potential discharge tomorrow if remains stable. We will continue to use this time to optimize his medical therapy.
All questions answered to the best my ability.
Total time spent: 52-minutes
Impression / Plan
-
.
PCP: Domingo Flores [facility], [place], [phone]
CDY: none prior to admission, new to Erica Cote MD
44 y/o, PMH HTN, statin intolerant HLD, polysubstance abuse including cocaine, heroin but drug free since 2006, sig FH CAD.
Woke with SSCP with associated nausea/vomiting about 10 hours prior to arriving in ER. Initial EKG NSR w/inc RBBB, no acute changes. First troponin 5.8. Continued to have 8/10 SSCP despite nitro, heparin. Brought urgently to label remover, s/p distal
RCA PCI for occluded vessel. Residual hazy 70% prox OM2 disease was planned for staged intervention this week, however, last evening developed 10/10 chest pain 'like an axe in my chest' along with significant rise of troponin to 60.2, and was
brought back to the lab, underwent OM2 PCI w/ALEK.
Currently with 1-2/10 residual chest pain that has been improving overnight, still on nitro gtt.
LHC- 100% occlusion of distal RCA, s/p angioplasty/ALEK
hazy 70% prox OM2 stenosis
LVG- EF 50% with posterolateral and diaphragmatic inferior hypokinesis
LHC garo- s/p IVUS guided angioplasty/ALEK of OM1
IMPRESSION:
Acute NSTEMI
s/p distal RCA PCI, 09/17/24
Residual 70% prox OM2 CAD with recurrent chest pain post RCA stenting
s/p prox OM2 PCI, 09/17/24
NSVT
inc RBBB
elevated liver enzymes
leukocytosis
HLD, statin intolerant
HTN
Elevated glucose levels
Elevated liver enzymes
FH CAD
Former smoker
Chews tobacco
h/o polysubstance use, previous cocaine and heroin, but sober since 2006
PLAN:
1. Patient is doing well this morning with no acute events overnight. He tells me that his chest discomfort has significantly improved after OM2 intervention that he was taken for urgently last evening in the setting of ongoing chest discomfort.
2. He is currently off nitroglycerin drip and his headache has improved from before.
3. Telemetry with normal sinus rhythm with frequent ventricular ectopy and short runs of nonsustained VT versus AIVR.
4. Peak troponin of 60.2 so far. Plan to continue dual antiplatelet therapy with daily baby aspirin and Brilinta 90 mg twice daily. Co-pay for Brilinta is $0.
5. Echocardiogram was reviewed by myself with mild ischemic cardiomyopathy noted. We will optimize goal-directed medical therapy by switching his Lopressor to Toprol-XL and continuing valsartan for now. Given his blood pressure we will hold off
on adding Aldactone which will be considered tomorrow and we will also look into cost for SGLT2 inhibitor.
6. No issues at the radial access site with dressing in place which is clean, dry and intact without evidence of hematoma or bruit.
7. History of myalgias with rosuvastatin so we will try atorvastatin 40 mg along with Zetia with close monitoring of lipids as an outpatient with LDL less than 55. Strongly encouraged and educated about high-fiber Mediterranean type diet and
importance of following up for cardiac rehab as an outpatient and staying physically active to optimize his cardiovascular risk.
8. Follow-up on hemoglobin A1c given elevated abnormal glucose to rule out concerns for prediabetes/diabetes.
9. Out of bed to chair and ambulation. Will continue to monitor for another 24 to 48 hours with potential discharge tomorrow if remains stable. We will continue to use this time to optimize his medical therapy.
All questions answered to the best my ability.
Total time spent: 52-minutes
Progress Note - Sand Technologist
Subjective
Date of Service: September 18, 2024
No acute issues overnight.
Objective
Labs:
09/18/24 04:48
09/18/24 04:48
Labs
Hgb 14.3 g/dL (13.0-18.0) 09/18/24 04:48
Hct 39.8 % (39.0-52.0) 09/18/24 04:48
Plt Count 245 10^3/uL (130-400) 09/18/24 04:48
PT 14.5 Sec (11.4-14.6) 09/17/24 15:29
INR 1.09 09/17/24 15:29
APTT 24.3 Sec (23.4-35.0) 09/17/24 15:29
Sodium 145 mmol/L (135-145) 09/18/24 04:48
Potassium 3.8 mmol/L (3.5-5.1) 09/18/24 04:48
BUN 14 mg/dl (9-20) 09/18/24 04:48
Creatinine 0.8 mg/dL (0.7-1.3) 09/18/24 04:48
Glucose 108 mg/dl (70-99) H 09/18/24 04:48
Troponins
09/17/24 09/17/24 09/18/24
14:27 21:00 04:48
Troponin I 5.800 H* 60.200 H* D 60.000 H*
09/18/24
10:21
Troponin I 39.500 H* D
Vital Signs and I&O:
Vital Signs
Temp Pulse Resp BP Pulse Ox
98.5 F 86 16 107/73 96
09/18/24 18:30 09/18/24 18:30 09/18/24 18:30 09/18/24 17:53 09/18/24 18:30
Vital Signs
Temp Pulse Resp BP Pulse Ox
98.5 F 86 16 107/73 96
09/18/24 18:30 09/18/24 18:30 09/18/24 18:30 09/18/24 17:53 09/18/24 18:30
Intake & Output
09/16/24 09/17/24 09/18/24 09/19/24
06:59 06:59 06:59 06:59
Intake Total 1220 / 1220
Output Total 750 / 750
Balance 470 / 470
Physical Exam
Physical Exam
AAOx3, MAOSVALDO 5/
RRR S1 S2 distant HS, no murmurs
CTA bilat, non labored
soft abd, + bs
right radial cath site without ht/bleeding, mildly tender to palpation, no hematoma or bruit
bilat extremities w/palpable distal pulses, no edema
[2024-09-18] MEDS: DIOVAN 80 MG PO (21:14)
--- NOTE | 2024-09-19 03:30 | PTCARENOTE ---
Pt AAOx3, w/c/o 'mild headache & some chest discomfort where the Dr worked on my heart'. Pt rated pain as a 2/10. PRN Tylenol administered as ordered w/pt reporting 'good relief'. Pt able to ambulate comfortably in the rm & halls. Pt's VSS w/HR in
the 60's-70's & BP 111/81 at start of shift. Pt is SR on telemetry monitoring. Pt's R radial site w/dressing C/D/I w/no signs or symptoms of bleeding or hematoma. CAD booklet discussed w/pt & questions answered. Pt w/no addtl needs; plan of care
ongoing.
[2024-09-19 04:13] VITALS: BP 101/63
[2024-09-19] MEDS: SYNTHROID 100 MCG PO (04:47)
[2024-09-19 05:10] LABS: % Basophils 0.4 % (0-2); % Eosinophils 1.1 % (0-6); % Immature Granulocytes 0.4 % (0-0.5); % Lymphocytes 20.6 % (20.5-51.1); % Monocytes 12.6 % (1.7-9.3); % Neutrophils 64.9 % (42.2-75.2); Absolute Basophils 0.1 10^3/uL (0-0.2); Absolute Eosinophils 0.2 10^3/uL (0-0.7); Absolute Immature Granulocytes 0.1 10^3/uL (0-0.05); Absolute Lymphocytes 3.3 10^3/uL (1.2-3.4); Absolute Neutrophils 10.2 10^3/uL (1.4-6.5); Hematocrit 44.1 % (39.0-52.0); Hemoglobin 15.5 g/dL (13.0-18.0); Mean Corp Hgb Conc. 35.1 g/dL (33.0-37.0); Mean Corpuscular Hgb 30.9 pg (27.0-31.0); Nucleated Red Blood Cells % 0 % (-); Platelet Count 237 10^3/uL (130-400); Red Blood Cell Count 5.01 10^6/uL (4.70-6.10); Red Cell Dist. Width 13.5 % (11.5-14.5); White Blood Cell Count 15.8 10^3/uL (4.8-10.8)
[2024-09-19 05:32] LABS: ALT (SGPT) 57 U/L (0-50); AST (SGOT) 204 U/L (17-59); Albumin 4.7 g/dl (3.5-5.0); Alkaline Phosphatase 51 U/L (38-126); Blood Urea Nitrogen 12 mg/dl (9-20); Calcium 10.1 mg/dl (8.4-10.2); Carbon Dioxide 31 mmol/L (22-30); Chloride 107 mmol/L (98-107); Estimated Creatinine Clearance > 125 ml/min; Glucose 99 mg/dl (70-99); Potassium 4.1 mmol/L (3.5-5.1); Sodium 148 mmol/L (135-145); Total Bilirubin 0.7 mg/dl (0.2-1.3); Total Protein 7.3 g/dl (6.3-8.2); eGFR > 60.00
[2024-09-19 07:15] VITALS: BP 122/76
[2024-09-19] MEDS: PROTONIX 40 MG PO (08:35)
[2024-09-19] MEDS: ZOLOFT 100 MG PO (08:35)
[2024-09-19] MEDS: TOPROL XL 25 MG PO (08:35)
[2024-09-19] MEDS: BRILINTA 90 MG PO (08:35)
[2024-09-19] MEDS: NICODERM TRANSDERMAL 21 MG TRANSDERM (08:35)
[2024-09-19] MEDS: LOW STRENGTH ASPIRIN 81 MG PO (08:36)
--- NOTE | 2024-09-19 09:05 | PTCARENOTE ---
The patient's left wrist IV was dislodged from the site. Inserted a #22 in his left forearm. The patient tolerated the insertion well. He remains chest pain free. NSR is noted on the monitor. His vital signs are stable. His right wrist puncture
wounds are FILM MAKER. He has no complaints.
[2024-09-19] MEDS: FARXIGA 10 MG PO (09:24)
--- NOTE | 2024-09-19 10:02 | W.PN.CARDCBS ---
Addendum entered and electronically signed by Cris Tierney MD 09/19/24 18:08:
I saw and examined the patient.
The Teller Supervisor's note was reviewed and I agree with the note.
Comment: No acute issues overnight. He has been out of bed ambulating without any recurrent chest discomfort or shortness of breath. Right radial access site without any issues.
Lab work and telemetry reviewed. No significant ventricular ectopy or NSVT like yesterday. On exam patient is well-appearing, in no acute distress, awake, alert and oriented x 3, no JVD PE, regular rate, normal S1 and S2, no murmurs, rubs or
gallops, abdomen soft, nontender, nondistended with active bowel sounds, right radial access site with dressing in place which is clean, dry and intact without evidence of hematoma or bruit, warm extremities without significant edema.
PLAN:
1. Plan for uninterrupted dual antiplatelet therapy with daily baby aspirin and Brilinta along with high intensity statin and Zetia with close monitoring for any recurrent myalgias. Low-dose beta-igor added. Telemetry with normal sinus rhythm
with significantly reduced ventricular ectopy compared to yesterday. LDL goal less than 55
2. Echocardiogram was reviewed by myself with mild ischemic cardiomyopathy noted, LVEF of 40 to 45%. Continue Toprol-XL 25 mg daily along with valsartan. Given borderline blood pressures, hold off on Aldactone for now but consider it as an
outpatient. Farxiga 10 mg daily was added.
3. No issues at the radial access site with dressing in place which is clean, dry and intact without evidence of hematoma or bruit.
4. Strongly encouraged and educated about high-fiber Mediterranean type diet and importance of following up for cardiac rehab as an outpatient and staying physically active to optimize his cardiovascular risk.
5. Hemoglobin A1c of 4.4 without evidence of prediabetes or diabetes.
6. Emphasized and educated patient on importance of not missing dual antiplatelet therapy or his other cardiac medications.
7. Overall patient is stable for discharge from a cardiac standpoint. Outpatient follow-up will be set up. He will pursue cardiac rehab as an outpatient.
All questions answered to the best my ability.
Total time spent: 33-minutes
Original Note:
Today's Communication / Plan
-
Initiate dapagliflozin
cardiac rehab
followup at [facility]
home today
Impression / Plan
-
PCP: Domingo Flores [facility], [place], [phone]
CDY: none prior to admission, new to Erica Cote MD
44 y/o, PMH HTN, statin intolerant HLD, polysubstance abuse including cocaine, heroin but drug free since 2006, sig FH CAD.
Woke with SSCP with associated nausea/vomiting about 10 hours prior to arriving in ER. Initial EKG NSR w/inc RBBB, no acute changes. First troponin 5.8. Continued to have 8/10 SSCP despite nitro, heparin. Brought urgently to crime lab analyst, s/p distal
RCA PCI for occluded vessel. Residual hazy 70% prox OM2 disease was planned for staged intervention this week, however, developed 10/10 chest pain 'like an axe in my chest' along with significant rise of troponin to 60.2, and was brought back to the
lab, underwent OM2 PCI w/ALEK. Residual CP treated with IV nitro, but now CP free and oob ambulating without pain.
[facility]- 100% occlusion of distal RCA, s/p angioplasty/ALEK
hazy 70% prox OM2 stenosis
LVG- EF 50% with posterolateral and diaphragmatic inferior hypokinesis
[facility] garo- s/p IVUS guided angioplasty/ALEK of OM1
Echo 09/18- nml LVSF, mild reduced EF 45-50%, inferoseptal/inferolateral HK, mild LVH, mild MR
IMPRESSION:
Acute NSTEMI
s/p distal RCA PCI, 09/17/24
Residual 70% prox OM2 CAD with recurrent chest pain post RCA stenting
s/p prox OM2 PCI, 09/17/24
Mild ischemic cardiomyopathy, EF 45-50%
NSVT
inc RBBB
elevated liver enzymes
leukocytosis
HLD, statin intolerant
HTN
Elevated glucose levels
FH CAD
Former smoker
Chews tobacco
h/o polysubstance use, previous cocaine and heroin, but sober since 2006
PLAN:
Chest pain free- oob ambulating without pain
Peak troponin 60.2
Tele- NSR 70-80s, no further ectopy noted over last 24hours
echo results noted with mild decreased EF/inferolat/septal HK
DAPT w/asa, brilinta
Adjusted meds for GDMT- toprol xl 25/d, add dapagliflozin 10mg/d today, continue valsartan
t/c spironolactone
repeat labs in 1-2 weeks- results to Dr. Cote
tolerating atorvastatin without myalgia- continue with zetia
cardiac rehab
elevated liver enzymes and leukocytosis- improving today and trending down- r/t [place]
HgbA1C 5.4%
Home later today
followup at [facility] as scheduled
Progress Note - [facility]
Subjective
Date of Service: September 19, 2024
Denies cp/palps/dyspnea
oob ambulating
cath site without pain
Objective
Labs:
09/19/24 04:39
09/19/24 04:39
Labs
Hgb 15.5 g/dL (13.0-18.0) 09/19/24 04:39
Hct 44.1 % (39.0-52.0) 09/19/24 04:39
Plt Count 237 10^3/uL (130-400) 09/19/24 04:39
PT 14.5 Sec (11.4-14.6) 09/17/24 15:29
INR 1.09 09/17/24 15:29
APTT 24.3 Sec (23.4-35.0) 09/17/24 15:29
Sodium 148 mmol/L (135-145) H 09/19/24 04:39
Potassium 4.1 mmol/L (3.5-5.1) 09/19/24 04:39
BUN 12 mg/dl (9-20) 09/19/24 04:39
Creatinine 0.9 mg/dL (0.7-1.3) 09/19/24 04:39
Glucose 99 mg/dl (70-99) 09/19/24 04:39
Troponins
09/17/24 09/17/24 09/18/24
14:27 21:00 04:48
Troponin I 5.800 H* 60.200 H* D 60.000 H*
09/18/24
10:21
Troponin I 39.500 H* D
Vital Signs and I&O:
Vital Signs
Temp Pulse Resp BP Pulse Ox
98.3 F 79 20 122/76 95
09/19/24 07:16 09/19/24 09:00 09/19/24 07:16 09/19/24 07:15 09/19/24 07:16
Vital Signs
Temp Pulse Resp BP Pulse Ox
98.3 F 79 20 122/76 95
09/19/24 07:16 09/19/24 09:00 09/19/24 07:16 09/19/24 07:15 09/19/24 07:16
Intake & Output
09/17/24 09/18/24 09/19/24 09/20/24
06:59 06:59 06:59 06:59
Intake Total 1220 / 1220 960 / 960
Output Total 750 / 750 200 / 200
Balance 470 / 470 960 / 960 -200 / -200
Physical Exam
Physical Exam
AAOx3 MAEE 5/5
RRR S1 S2 no murmurs
CTA bilat, non labored
soft abd, + bs
right radial cath site without ht/bleeding, non tender
bilat extremities w/palpable distal pulses, no edema
--- NOTE | 2024-09-19 10:19 | CM ---
spoke to pt in room, he is prev indep, lives with his mom in an apt with no steps to enter. he denies any dme's or dc planning needs. plan is for dc to home when medically stable.
[2024-09-19 11:52] VITALS: BP 98/69
[2024-09-19 13:20] LABS: ACT-LR - POC > 397 Seconds (116-155)
--- NOTE | 2024-09-19 16:46 | W.DS.TRANS ---
DC Summary - Screening Tech
-
Discharge Instructions:
Discharge Diagnosis/Procedures NSTEMI, s/p angioplasty and stent x1 to Right
Coronary artery and x1 to Obtuse Marginal artery
Diet Low Cholesterol
Driving Restrictions No driving for 24 hours
Other Services Cardiac Rehab
Instructions:
Stand-Alone Forms: DC Instructions- Cath/EP Lab
Changes to Home Medications: Yes
Discharge Medications:
DC Medications w/original date entered in Touch-[employer]
bismuth subsalicylate 262 mg/15 mL oral suspension (Pepto-Bismol) 262 mg PO DAILYPRN PRN gerd 09/17/24
calcium carbonate (Tums) 200 mg PO BIDPRN PRN gerd 09/17/24
ezetimibe 10 mg tablet (Zetia) 10 mg PO QPM 09/17/24
levothyroxine 100 mcg tablet (Synthroid) 100 mcg PO DAILY 09/17/24
omeprazole 20 mg tablet,delayed release 20 mg PO DAILYPRN PRN gerd 09/17/24
sertraline 100 mg tablet 100 mg PO BID 09/17/24
valsartan 80 mg tablet 80 mg PO HS 09/17/24
ticagrelor 90 mg tablet (Brilinta) 90 mg PO BID #60 tabs 09/18/24
aspirin 81 mg chewable tablet 81 mg PO DAILY #0 tabs 09/19/24
atorvastatin 40 mg tablet 40 mg PO QPM #90 tabs 09/19/24
dapagliflozin propanediol 10 mg tablet 10 mg PO DAILY #90 tabs 09/19/24
metoprolol succinate 25 mg tablet,extended release 24 hr 25 mg PO DAILY #90 tabs 09/19/24
nicotine 21 mg/24 hr daily transdermal patch 21 mg transdermal DAILY #28 ea 09/19/24
Home Medication Changes
NEW: ticagrelor, aspirin, atorvastatin, dapagliflozin, metoprolol succinate, nicotine
Pending Results: No
[2024-09-20 02:06] LABS: Lipoprotein a (Lp a) 71 mg/dL (<=29)
== END 2024-09-19 13:54 | disposition home or self-care (01) | DRG 322 ==
LOC: IVU 16:57
PROVIDERS: Internal Medicine Interventional Cardiology; Nurse Practitioner; Student in an Organized Health Care Education/Training Program; ADMITTING PHYSICIAN Internal Medicine Cardiovascular Disease; EMERGENCY PHYSICIAN Student in an Organized Health Care Education/Training Program
PROC: 4A023N7 Measurement of Cardiac Sampling and Pressure, Left Heart, Percutaneous Approach (ICD-10-PCS; 2024-09-17)
PROC: B240ZZ3 Ultrasonography of Single Coronary Artery, Intravascular (ICD-10-PCS; 2024-09-17)
PROC: B2111ZZ Fluoroscopy of Multiple Coronary Arteries using Low Osmolar Contrast (ICD-10-PCS; 2024-09-17)
PROC: 027034Z Dilation of Coronary Artery, One Artery with Drug-eluting Intraluminal Device, Percutaneous Approach (ICD-10-PCS; 2024-09-17)
DX: I21.4 Non-ST elevation (NSTEMI) myocardial infarction (principal); I47.20 Ventricular tachycardia, unspecified; E78.00 Pure hypercholesterolemia, unspecified; I10 Essential (primary) hypertension; R19.7 Diarrhea, unspecified; R07.89 Other chest pain; I45.10 Unspecified right bundle-branch block; E87.6 Hypokalemia; F14.11 Cocaine abuse, in remission; R11.2 Nausea with vomiting, unspecified; I49.3 Ventricular premature depolarization; F11.11 Opioid abuse, in remission; I25.5 Ischemic cardiomyopathy; M79.10 Myalgia, unspecified site; I25.10 Atherosclerotic heart disease of native coronary artery without angina pectoris; D72.829 Elevated white blood cell count, unspecified; F17.220 Nicotine dependence, chewing tobacco, uncomplicated; R73.9 Hyperglycemia, unspecified; E03.9 Hypothyroidism, unspecified; Z56.0 Unemployment, unspecified; Z82.49 Family history of ischemic heart disease and other diseases of the circulatory system; Z88.8 Allergy status to other drugs, medicaments and biological substances; Z79.890 Hormone replacement therapy
CPT/HCPCS: 71045; 80053; 80061; 83036; 83690; 83695; 83735; 84443; 84484; 85025; 85347; 85610; 85730; 87070; 93005; 93306; 93458; 96361; 96374; 99152; 99153; 99291; C1725; C1753; C1769; C1874; C1887; C1894; C9600; C9606; Q9967

== ENCOUNTER 2024-10-10 14:12 | Outpatient (RCR) | payer OTHER, SELFPAY | END 2024-10-10 23:59 | disposition home or self-care (01) | LOC: CRHB 14:12 | PROVIDERS: ATTENDING PHYSICIAN Internal Medicine Cardiovascular Disease | DX: I21.4 Non-ST elevation (NSTEMI) myocardial infarction (principal); I25.2 Old myocardial infarction (principal); Z95.5 Presence of coronary angioplasty implant and graft | CPT/HCPCS: 93797; 93798 ==

== ENCOUNTER → 2024-11-01 11:19 | Outpatient (REF) | payer OTHER, SELFPAY | LOC: HWRCS 11:19 | PROVIDERS: ATTENDING PHYSICIAN Physician Assistant | DX: I25.10 Atherosclerotic heart disease of native coronary artery without angina pectoris (principal); I25.5 Ischemic cardiomyopathy | CPT/HCPCS: 93306 ==

== ENCOUNTER 2024-11-02 15:27 | Outpatient (RCR) | payer OTHER, SELFPAY | END 2024-11-02 15:30 | disposition home or self-care (01) | LOC: CRHB 15:27 | PROVIDERS: ATTENDING PHYSICIAN Internal Medicine Cardiovascular Disease | DX: I21.4 Non-ST elevation (NSTEMI) myocardial infarction (principal); I25.10 Atherosclerotic heart disease of native coronary artery without angina pectoris (principal); Z95.5 Presence of coronary angioplasty implant and graft; I25.2 Old myocardial infarction | CPT/HCPCS: 93797; 93798 ==

== ENCOUNTER 2025-05-06 17:09 | Emergency (ER) | payer OTHER, SELFPAY ==
[2025-05-06 17:14] VITALS: BP 117/91
[2025-05-06 17:32] LABS: Hematocrit 47.8 % (39.0-52.0); Hemoglobin 16.7 g/dL (13.0-18.0); Mean Corp Hgb Conc. 34.9 g/dL (33.0-37.0); Mean Corpuscular Volume 85.8 fL (80.0-94.0); Nucleated Red Blood Cells % 0 % (-); Platelet Count 250 10^3/uL (130-400); Red Cell Dist. Width 13.4 % (11.5-14.5)
[2025-05-06 17:46] LABS: ALT (SGPT) 63 U/L (0-50); AST (SGOT) 32 U/L (17-59); Albumin 5.3 g/dl (3.5-5.0); Alkaline Phosphatase 53 U/L (38-126); Blood Urea Nitrogen 12 mg/dl (9-20); Calcium 10.5 mg/dl (8.4-10.2); Carbon Dioxide 28 mmol/L (22-30); Chloride 105 mmol/L (98-107); Glucose 113 mg/dl (70-99); Potassium 4.5 mmol/L (3.5-5.1); Sodium 140 mmol/L (135-145); Total Protein 8.4 g/dl (6.3-8.2); eGFR > 60.00
[2025-05-06 17:58] LABS: Troponin I 0.014 ng/ml
--- NOTE | 2025-05-06 19:23 | ED.GENMED ---
History of Present Illness
General
Chief Complaint: Chest Problem
Source: patient
Exam Limitations: none
Time Seen by Provider: 05/06/25 19:23
History of Present Illness
History of Present Illness:
34-year-old male with 5 days of midsternal chest pressure. And some unusual fatigue. He states the symptoms are there most of the time. Today's was worse at 2 PM while vacuuming. Ongoing mild symptoms currently. However again this has been
relatively consistent for 5 days. Denies pleuritic pain back pain or other complaints.
Past History
Past History
ED Past Medical History: CAD, HTN, Hypercholesterolemia and Hypothyroidism
ED Past Surgical History: Cardiac (Cardiac stent cardiac stents) and Other (Hernia repair)
Social History
Tobacco: Other (chewed tobacco)
Alcohol: None
Review of Systems
Review of Systems
All Other Systems: Not applicable
Respiratory: Reports no symptoms
Cardiac: Denies syncope
ABD/GI: Reports no symptoms
Phy Exam
Physical Exam
Physical Exam:
GENERAL: Alert and oriented in no apparent distress
EYE: Orbits normal.
NECK: Supple
CARDIAC: Regular rate and rhythm without any obvious murmurs.
LUNGS: Clear breath sounds,normal
ABDOMEN: Soft, without focal tenderness or distention
NEUROLOGICAL: Alert and oriented , grossly non-focal
SKIN: Warm and dry, no rash or lesion, no discoloration, skin intact.
MUSCULOSKELETAL: No edema,no deformity.Good color
PSYCH: Normal and appropriate interaction.
Course
Orders/Labs/Results
Orders:
Orders
05/06/25 17:10
EKG [Electrocardiogram (*1)] Urgent
Reason for Study: Chest Pain
EKG- Treatment ONCE
05/06/25 17:22
Complete Blood Count/With Diff Urgent
Comprehensive Metabolic Panel Urgent
Troponin I Urgent
Abnormal Lab Results
05/06/25
17:22
Abs Immat Gran (auto) 0.1 H 10^3/uL
(0-0.05)
Absolute Neuts (auto) 7.4 H 10^3/uL
(1.4-6.5)
Absolute Monos (auto) 0.7 H 10^3/uL
(0.1-0.6)
Lymphocytes % 20.2 L %
(20.5-51.1)
Glucose 113 H mg/dl
(70-99)
Calcium 10.5 H mg/dl
(8.4-10.2)
ALT 63 H U/L
(0-50)
Total Protein 8.4 H g/dl
(6.3-8.2)
Albumin 5.3 H g/dl
(3.5-5.0)
05/06/25 17:22
05/06/25 17:22
Vital Signs
Initial and Last Documented VS:
Initial Vital Signs
Temp Pulse Resp BP Pulse Ox
98.7 F 91 18 117/91 100
05/06/25 17:14 05/06/25 17:14 05/06/25 17:14 05/06/25 17:14 05/06/25 17:14
Last Documented Vital Signs
Temp Pulse Resp BP Pulse Ox
98.7 F 82 16 119/81 98
05/06/25 17:14 05/06/25 20:15 05/06/25 20:15 05/06/25 20:00 05/06/25 20:15
MDM/Problems Addressed
Differential Diagnosis Includes:
Patient describing vague chest tightness for 5 days. Is there most of the time. Today's was worse somewhat with vacuuming at 2 PM. Also complains of some fatigue and at times lightheaded. Given 5 days of symptoms with relatively constant
symptoms and a normal troponin this is reassuring. However with patient's stent history and the description of some exertional component I am concerned enough for an underlying coronary etiology that I highly recommended the patient stay in the
hospital for observation and ongoing cardiac evaluation. He is fully aware that although he has not had a heart attack, he could have a significant recurring blockage and that these could be a warning issue. This can lead to sudden cardiac arrest
progressive heart failure etc. This was discussed multiple times. After multiple discussions patient has consistently said he wants to be discharged to follow-up closely with cardiology. I do not feel repeat cardiac testing is appropriate given
the 5 days of symptoms. Again it was stressed that he should stay in the hospital
*Pulse Oximetry
SaO2: 100
Oxygen Mode of Delivery: Room air
Patient hypoxic: no
*EKG
Interpreted by ED Provider?: Yes
Interpretation: abnormal
Comparison EKG: changes noted
Heart Rate: 82
Rate: normal
Rhythm: sinus
Landers: normal axis and left axis deviation
Interval: normal interval
QRS Pattern: right bundle branch block (inc)
Ischemia: other (Nonspecific inferior changes. Slightly improved)
*Critical Care Note
Total Time (30-74mins, 75-104mins- exclusive of procedures): Not Applicable
Data Reviewed
Review of Other/Old Records Reveals: Labs, Records and Testing
ED Attending Note
-
Portions of this chart may have been created with voice recognition software.� Occasional wrong word or��sound alike� substitutions may have occurred due to the inherent limitations of voice recognition software.
Discharge Plan
Departure
Patient Disposition: Home (Routine Discharge)
Date of Disposition: 05/06/25
Time of Disposition: 19:51
Patient with high blood pressure during this ER visit?: Yes
Discharge Problem:
Recurring chest pain
Instructions: Chest Pain DCA Follow Up, BLOOD PRESSURE
Prescriptions:
No Action
sertraline 100 mg Tablet
100 mg PO BID
valsartan 80 mg Tablet
80 mg PO HS
bismuth subsalicylate [Pepto-Bismol] 262 mg/15 mL Suspension
262 mg PO DAILYPRN PRN (Reason: gerd)
calcium carbonate [Tums] 200 mg calcium (500 mg) Tablet,Chewable
200 mg PO BIDPRN PRN (Reason: gerd)
ezetimibe [Zetia] 10 mg Tablet
10 mg PO QPM
omeprazole 20 mg Tablet,Delayed Release (Dr/Ec)
20 mg PO DAILYPRN PRN (Reason: gerd)
levothyroxine [Synthroid] 100 mcg Tablet
100 mcg PO DAILY
Brilinta 90 mg Tablet
90 mg PO BID Qty: 60 11RF
dapagliflozin propanediol 10 mg Tablet
10 mg PO DAILY Qty: 90 3RF
atorvastatin 40 mg Tablet
40 mg PO QPM Qty: 90 3RF
nicotine 21 mg/24 hr Patch 24 Hour
21 mg transdermal DAILY Qty: 28 2RF
aspirin 81 mg Tablet,Chewable
81 mg PO DAILY Qty: 0 0RF
metoprolol succinate 25 mg Tablet Extended Release 24 Hr
25 mg PO DAILY Qty: 90 3RF
Activity Restrictions/Additional Instructions:
You should get a call from the credit department manager tomorrow for close follow-up
Please understand, I highly recommend you stay for further cardiac evaluation.
This could lead to sudden cardiac arrest heart failure etc.
If you change your mind about admission or have any progression in symptoms please return immediately
Interventions
Interventions:
*Risk Screen - Suicide Last Done: 05/06/25 17:14
*General Assessment Last Done: 05/06/25 17:14
*Neglect/Abuse Screening Last Done: 05/06/25 17:14
*ED- Fall Risk Assessment Last Done: 05/06/25 19:51
*ED COVID-19 Vaccine History Last Done: 05/06/25 19:51
*ED Influenza Vaccine History Last Done: 05/06/25 19:51
*Nursing Disposition Last Done: 05/06/25 20:46
ED- Cardiac Assessment Last Done: 05/06/25 19:51
ED- Pulmonary Assessment Last Done: 05/06/25 19:51
Discharge Date and Time
Discharge Date/Time: 05/06/25 20:47
Print Language: KOSOVAN
[2025-05-06 19:50] VITALS: BP 115/77
[2025-05-06 19:51] VITALS: BMI 28.1
[2025-05-06 20:00] VITALS: BP 119/81
== END 2025-05-06 20:47 | disposition home or self-care (01) ==
LOC: EMR 17:09
PROVIDERS: Emergency Medicine; EMERGENCY PHYSICIAN Emergency Medicine
DX: R07.89 Other chest pain (principal); R53.83 Other fatigue; E78.00 Pure hypercholesterolemia, unspecified; E03.9 Hypothyroidism, unspecified; I10 Essential (primary) hypertension; I25.10 Atherosclerotic heart disease of native coronary artery without angina pectoris; Z95.5 Presence of coronary angioplasty implant and graft; I45.10 Unspecified right bundle-branch block
CPT/HCPCS: 99284; 80053; 84484; 85025; 93005